=== PATIENT | male | born 1990 | race Two or more races ===

== ENCOUNTER 2017-03-30 17:01 | Emergency (ER) | payer OTHER ==
--- NOTE | ~2017-03-30 | CR173 ---
[facility] A Service of [facility] & [facility] RADIOLOGY TEXT RESULTS PATIENT: LITZY RODARTE LOCATION: CFTX : 89 UNIT #: [id number] AGE: [address]: Echo Valderrama APRN SEX: M ORDER DR: [id number] [facility] [address] [place], [place] [address] [id number] E MR#: [id number] Acc #: [id number] NAME: LITZY RODARTE : 1990 SEX: M STUDY DATE/TIME: 03/30/2017 17:56 UNIT: [facility] ROOM: STUDY DESCRIPTION: CR Knee 3 Views Rt Attending Physician: Echo Valderrama A.P.R.N. Ordering Physician: Ed Ken Pabon M.D. Primary Care Physician: No Primary Care Physician MEDICAL IMAGING REPORT This report is preliminary unless electronic signature is present EXAM Right knee. INDICATIONS Right knee pain, status post soccer injury. Anterior knee pain. FINDINGS Three views of the right knee without comparison. There is no acute fracture or dislocation. No knee effusion. No foreign body. IMPRESSION Negative right knee. Dictated by... Romario Garsia M.D. THIS IS AN ELECTRONICALLY VERIFIED REPORT Romario Garsia M.D. at 03/31/2017 8:44 AM LEE ANN/lidia TD: 03/31/2017 01:37 JOB #: [id number] MEDICAL IMAGING REPORT Page 1 of 1 COPY
== END 2017-03-30 18:44 | disposition home or self-care (01) ==
LOC: CFTX 17:01 → CED 17:01 → CFTX 17:34
DX: S83.91XA Sprain of unspecified site of right knee, initial encounter (principal); M72.2 Plantar fascial fibromatosis; X58.XXXA Exposure to other specified factors, initial encounter; Y92.9 Unspecified place or not applicable
CPT/HCPCS: 29505; 73562; 99283